=== PATIENT | male | born 2000 | race Caucasian/White ===

== ENCOUNTER 2023-03-07 12:57 | Outpatient (REF) | payer BC, SELFPAY ==
[2023-03-07 15:49] LABS: HCT 46.2 % (40.0-50.0); HGB 15.7 g/dL (13.5-17.5); MCH 28.3 pg (27.0-33.0); MCV 83 fL (80-95); MPV 11.7 fL (8.0-11.0); Platelet Count 355 10^3/uL (130-400); RBC 5.54 10^6/uL (4.36-5.78); RDW 11.8 % (11.8-14.1); RDW-SD 35.9 fL; WBC 8.55 10^3/uL (4.4-10.8)
[2023-03-07 16:04] LABS: ALT 33 U/L (16-63); AST 29 U/L (15-37); Albumin 4.3 g/dL (3.4-5.0); Alkaline Phosphatase 60 U/L (46-116); Anion Gap 7.3 mmol/L (3-11); BUN 10 mg/dL (7-18); Bilirubin, Total 0.3 mg/dL (0.2-1.0); CO2 31.7 mmol/L (21.0-32.0); CREATININE 0.8 mg/dL (0.70-1.30); Calcium 9.5 mg/dL (8.5-10.1); Chloride 101 mmol/L (98-107); Estimated GFR 126.74 (mL/min/1.73m2); Glucose 94 mg/dL (74-106); Potassium 4.2 mmol/L (3.5-5.1); Sodium 140 mmol/L (136-145); Total Protein 8.2 g/dL (6.4-8.2)
[2023-03-07 16:28] LABS: Mono Screening Negative (Negative)
== END 2023-03-07 12:58 | disposition home or self-care (01) ==
LOC: NCHCN 12:57
PROVIDERS: Visit Provider Physician Assistant
DX: R50.9 Fever, unspecified (principal)
CPT/HCPCS: 80053; 85027; 86308